=== PATIENT | male | born 1935 | race Caucasian/White ===

== ENCOUNTER 2023-11-19 16:22 | Emergency (ER) | payer OTHER ==
[~2023-11-19] VITALS: Ht 162.6 cm; Wt 63.5 kg
[2023-11-19 16:29] VITALS: BP 136/68; PULSE 94; RESP 16; TEMP 98.4; O2SAT 99
[2023-11-19 16:45] VITALS: O2SAT 99
[2023-11-19 18:50] VITALS: O2SAT 97
[2023-11-19] MEDS ORDERED: ACET-10509 PO (20:39)
[2023-11-19 21:39] VITALS: BP 136/73; PULSE 85; RESP 18; TEMP 97.7; O2SAT 96
== END 2023-11-19 21:39 | disposition home or self-care (01) ==
LOC: MED 16:22
DX: S43.401A Unspecified sprain of right shoulder joint, initial encounter (principal); Z79.899 Other long term (current) drug therapy; W07.XXXA Fall from chair, initial encounter; Y93.89 Activity, other specified; Y92.89 Other specified places as the place of occurrence of the external cause; Y99.8 Other external cause status
CPT/HCPCS: 73030; 99285